=== PATIENT | male | born 1980 | race Caucasian/White ===

== ENCOUNTER → 2019-09-16 | Outpatient (CLI) | payer BC ==
--- NOTE | 2019-09-16 09:04 | Diagnostic Imaging Report ---
EXAM: CERVICAL SPINE 3 VIEW OR LESS INDICATION: Worsening chronic neck pain. COMPARISON: None. FINDINGS: Normal alignment. Vertebral body heights preserved. Minimal diffuse degenerative endplate changes. No fractures. Normal prevertebral soft tissues. IMPRESSION: Minimal spondylotic changes in the cervical spine. No acute findings. Dictated by: Dictated on workstation # [id number]
[2019-09-16 15:07] LABS: CHOLESTEROL 161 MG/DL (< 200); HDL CHOLESTEROL 47 MG/DL (40-60); TRIGLYCERIDES 63 MG/DL (<150); VLDL CHOLESTEROL 13 MG/DL (5-40)
== END ==
LOC: LAB FS 08:18
PROVIDERS: ATTEND Family Medicine
DX: E78.5 Hyperlipidemia, unspecified (principal); M54.2 Cervicalgia
CPT/HCPCS: 36415; 72040; 80061

== ENCOUNTER → 2020-06-14 | Outpatient (CLI) | payer BC ==
--- NOTE | 2020-06-14 11:39 | Diagnostic Imaging Report ---
Indication: Atypical chest pain, left-sided PA and lateral chest Heart size and pulmonary vascularity are normal. Lungs are clear. There are no effusions or pneumothoraces. IMPRESSION: Negative chest Dictated by: Dictated on workstation # [id number]
== END ==
LOC: RAD FS 10:11
PROVIDERS: ATTEND Family Medicine
DX: R07.89 Other chest pain (principal)
CPT/HCPCS: 71046

== ENCOUNTER → 2020-06-27 | Outpatient (CLI) | payer BC ==
[~2020-06-27] MED LIST: CATHETER FLUSH 10 ML SYR IV PRN; HOLD METFORMIN - RECEIVED CONTRAST 20 ML VIAL IV SCH; IOHEXOL 350 MG/ML 100 ML (OMNIPAQUE 350) VIAL IV ONE; NS 100 ML (IVPB) BAG IV ONE
--- NOTE | 2020-06-27 09:31 | Diagnostic Imaging Report ---
PROCEDURE: CT chest with contrast only. TECHNIQUE: Multiple contiguous axial images were obtained through the chest after administration of intravenous contrast. Auto Exposure Controls were utilized during the CT exam to meet ALARA standards for radiation dose reduction. INDICATION: Cough and shortness of breath for 2 months. COMPARISON: Chest radiographs performed on 06/14/2020. FINDINGS: Absence of intravenous contrast decreases sensitivity for detection of lymphadenopathy and vascular pathology. TRACHEA AND MAIN BRONCHI: Patent without evidence of tracheal or endobronchial lesion. LUNGS AND PLEURA: Clear lungs. No pleural effusion or pneumothorax. MEDIASTINUM AND PRIMITIVO: Visualized thyroid gland is normal. No mediastinal or hilar lymphadenopathy. Esophagus is nondistended. HEART AND VESSELS: Heart is normal in size. No pericardial effusion. Thoracic aorta is nonaneurysmal. DIAPHRAGM AND UPPER ABDOMEN: Unremarkable. CHEST WALL: No axillary lymphadenopathy. BONES: No acute abnormality. IMPRESSION: Normal exam. No acute cardiopulmonary process. No findings to account for the patient's symptoms. Dictated by: Dictated on workstation # [id number]
== END ==
LOC: RAD FS 08:03
PROVIDERS: ATTEND Family Medicine
DX: R05 Cough (principal); R06.02 Shortness of breath
CPT/HCPCS: 71260

== ENCOUNTER → 2021-04-16 | Outpatient (CLI) | payer BC ==
--- NOTE | 2021-04-16 10:21 | Diagnostic Imaging Report ---
PROCEDURE: CT sinuses without contrast TECHNIQUE: Multiple contiguous axial images were obtained through the sinuses without the use of intravenous contrast. Coronal and sagittal reformations were then performed. Auto Exposure Controls were utilized during the CT exam to meet ALARA standards for radiation dose reduction. INDICATION: Chronic recurrent sinusitis without relief after treatment. FINDINGS: There is rightward deviation of the nasal septum with mild leftward septal spurring. Ostiomeatal complexes do appear to be patent bilaterally and there is no evidence of significant mural thickening or air-fluid level within the paranasal sinuses. Mastoid air cells are also clear. There is pneumatization of the petrous portions of temporal bones bilaterally. There is no evidence of middle ear cavity abnormality. Temporomandibular joints are unremarkable. IMPRESSION: No CT evidence of sinusitis or other acute abnormality. Dictated by: Dictated on workstation # [id number]
== END ==
LOC: RAD FS 09:31
PROVIDERS: ATTEND Family Medicine
DX: J32.9 Chronic sinusitis, unspecified (principal)
CPT/HCPCS: 70486

== ENCOUNTER → 2021-04-18 | Outpatient (CLI) | payer BC | LOC: LABNPT 14:57 | PROVIDERS: ATTEND Family Medicine | DX: Z20.822 Contact with and (suspected) exposure to COVID-19 (principal) | CPT/HCPCS: 87636 ==

== ENCOUNTER 2021-05-17 05:30 | Outpatient (RCR) | payer BC ==
[~2021-05-17] VITALS: Ht 177.8 cm; Wt 69.1 kg
== END 2021-05-20 11:01 | disposition home or self-care (01) ==
LOC: PREOP 05:30
PROVIDERS: ATTEND Surgery
DX: Z01.818 Encounter for other preprocedural examination (principal)

== ENCOUNTER → 2021-05-17 | Outpatient (CLI) | payer BC ==
[~2021-05-17] MED LIST changes: +BUPR-168 PO; -CATHETER FLUSH 10 ML SYR IV PRN; -HOLD METFORMIN - RECEIVED CONTRAST 20 ML VIAL IV SCH; -IOHEXOL 350 MG/ML 100 ML (OMNIPAQUE 350) VIAL IV ONE; -NS 100 ML (IVPB) BAG IV ONE; +PANT40TA2 PO
== END ==
LOC: LAB FS 10:01
PROVIDERS: ATTEND Surgery
DX: Z01.812 Encounter for preprocedural laboratory examination (principal); K21.9 Gastro-esophageal reflux disease without esophagitis; Z20.822 Contact with and (suspected) exposure to COVID-19
CPT/HCPCS: 87635

== ENCOUNTER 2021-05-21 12:27 | Day surgery (SDC) | payer BC ==
[~2021-05-21] VITALS: Ht 177.8 cm; Wt 69.1 kg
[2021-05-21] MEDS ORDERED: LACTATED RINGERS 1,000 ML IV STA (12:30)
[2021-05-21] MEDS ORDERED: HURRICAINE EXT TUBE (BENZOCAINE) XX PRN (12:30)
[2021-05-21] MEDS ORDERED: LACTATED RINGERS 1,000 ML IV ONE (12:34)
[2021-05-21 12:43] VITALS: BP 125/81
--- NOTE | 2021-05-21 13:31 | Progress Note-Pre Operative ---
Pre-Operative Progress Note H&P Reviewed The H&P was reviewed, patient examined and no changes noted. Date Seen by Provider: May 21, 2021 Time Seen by Provider: 13:30 Date H&P Reviewed: May 21, 2021 Time H&P Reviewed: 13:30 Pre-Operative Diagnosis: GERD SKYLAR HAMILTON DO May 21, 2021 13:30
[2021-05-21] MEDS ORDERED: PROPOFOL INJECTION 50 ML IV ONE (13:38)
[2021-05-21] MEDS ORDERED: MIDAZOLAM 2 MG/2 ML (VERSED) VIAL ONE (13:38)
[2021-05-21 13:50] VITALS: BP 99/59
[2021-05-21 13:55] VITALS: BP 100/62
[2021-05-21 14:00] VITALS: BP 98/64
--- NOTE | 2021-05-21 14:00 | Anesthesia-General Post-Op ---
MAC Patient Condition Mental Status/LOC: Same as Preop Cardiovascular: Satisfactory Nausea/Vomiting: Absent Respiratory: Satisfactory Pain: Controlled Complications: Absent Post Op Complications Complications None Follow Up Care/Instructions Patient Instructions None needed. Anesthesiology Discharge Order Discharge Order Patient is doing well, no complaints, stable vital signs, no apparent adverse anesthesia problems. No complications reported per nursing. JERSON GODFREY CRNA May 21, 2021 14:00
--- NOTE | 2021-05-21 14:13 | Discharge Inst-Simple/Standard ---
Discharge Inst-Standard Patient Instructions/Follow Up Plan of Care/Instructions/FU: 2 weeks Rachel Activity as Tolerated: Yes Discharge Diet: Regular Diet SKYLAR HAMILTON DO May 21, 2021 14:12
[2021-05-21 14:25] VITALS: BP 110/80
[2021-05-21 14:35] VITALS: BP 110/80
--- NOTE | 2021-05-21 20:00 | OPERATIVE REPORT ---
DATE OF SERVICE: 05/21/2021 PREOPERATIVE DIAGNOSES: Gastroesophageal reflux disease. POSTOPERATIVE DIAGNOSIS: Normal esophagogastroduodenoscopy. PROCEDURE: EGD with biopsy. SURGEON: Skylar Ramos DO ANESTHESIA: Per BODY SHOP ESTIMATOR. ESTIMATED BLOOD LOSS: None. COMPLICATIONS: None. INDICATIONS: The patient is a 40-year-old male with GERD symptoms. He understands risks and benefits of procedure and wishes to proceed. Consent was signed in the chart. DESCRIPTION OF PROCEDURE: The patient was taken to endoscopy suite, placed in the left lateral recumbent position. Timeout was performed. Scope was inserted in mouth, down the esophagus, stomach and into the duodenum without difficulty. No polyps, masses or ulcerations within the duodenum. Scope was slowly retracted back to stomach where it was further insufflated. Biopsy of the antrum was obtained. No polyps, masses or ulcerations. Scope was retroflexed noting no other pathology. Scope was returned to its normal position, slowly withdrawn until completely in the distal esophagus. Biopsy of the GE junction was obtained. No polyps, masses or ulcerations. Scope was slowly retracted back until completely removed. The patient tolerated the procedure well without any complications, taken to recovery room in stable condition. RECOMMENDATIONS: The patient will follow up in 2 weeks to discuss pathology results. We would consider getting a gallbladder ultrasound and HIDA scan if indicated. Continue on current medications. CC: Dr. Aleida Collins - requested, unable to deliver. Job ID: [id number] DocumentID: [id number] Dictated Date: 05/21/2021 14:15:14 Collator Date: 05/21/2021 20:00:14 Dictated By: SKYLAR RAMOS DO
== END 2021-05-21 14:35 | disposition home or self-care (01) ==
LOC: ENDO 12:27
PROVIDERS: ATTEND Surgery
DX: K21.9 Gastro-esophageal reflux disease without esophagitis (principal); K29.50 Unspecified chronic gastritis without bleeding; K31.89 Other diseases of stomach and duodenum; B96.81 Helicobacter pylori [H. pylori] as the cause of diseases classified elsewhere; Z79.899 Other long term (current) drug therapy; Z87.891 Personal history of nicotine dependence
CPT/HCPCS: 88305; 88342

== ENCOUNTER → 2021-06-07 | Outpatient (CLI) | payer BC ==
--- NOTE | 2021-06-07 11:00 | Diagnostic Imaging Report ---
INDICATION: History of navicular fracture. COMPARISON: None. FINDINGS: 3 views of the left foot demonstrate no acute fracture or dislocation. There are no focal osseous lesions. There is no soft tissue swelling. Joint spaces are well maintained. No radiopaque foreign bodies are seen. IMPRESSION: No acute fractures or dislocations of the left foot. Dictated by: Dictated on workstation # [id number]
== END ==
LOC: RAD FS 10:39
PROVIDERS: ATTEND Nurse Practitioner
DX: Z87.81 Personal history of (healed) traumatic fracture (principal)
CPT/HCPCS: 73630

== ENCOUNTER → 2021-06-21 | Outpatient (CLI) | payer BC ==
--- NOTE | 2021-06-21 10:23 | Diagnostic Imaging Report ---
INDICATION: Sprain of the tarsometatarsal joint. TIME OF EXAM: 9:38 AM Correlation is made with prior radiograph from 06/07/2021. 3 views of the left foot were obtained. Tarsal metatarsal alignment appears normal. Metatarsals are intact. Phalanges are intact. No fractures are seen. The midfoot and hindfoot are unremarkable apart from a plantar calcaneal spur. IMPRESSION: No acute abnormality is detected. Dictated by: Dictated on workstation # [id number]
== END ==
LOC: RAD FS 09:29
PROVIDERS: ATTEND Nurse Practitioner
DX: S93.622D Sprain of tarsometatarsal ligament of left foot, subsequent encounter (principal); X58.XXXD Exposure to other specified factors, subsequent encounter
CPT/HCPCS: 73630

== ENCOUNTER → 2021-06-28 | Outpatient (CLI) | payer BC | LOC: LAB FS 06-27 09:52 | PROVIDERS: ATTEND Surgery | DX: B96.81 Helicobacter pylori [H. pylori] as the cause of diseases classified elsewhere (principal) | CPT/HCPCS: 36415; 87015; 87045; 87046; 87338; 87899 ==

== ENCOUNTER → 2021-08-07 | Outpatient (CLI) | payer BC ==
--- NOTE | 2021-08-07 08:58 | Diagnostic Imaging Report ---
INDICATION: Chronic neck pain. TIME OF EXAM: 8:33 AM. TECHNIQUE: Multiple views of the cervical spine were obtained. FINDINGS: The curvature and alignment are normal. The vertebral body heights and disc spaces are well-maintained. The prevertebral tissues are normal. No fractures are identified. The odontoid is intact. Flexion and extension views were also performed. There may be very slight anterolisthesis of C2 on C3 and C3 on C4 during flexion which corrects during extension. IMPRESSION: Unremarkable cervical spine radiographs apart from an perhaps minimal motion at C2-C3 and C3-C4. The study is otherwise unremarkable. Dictated by: Dictated on workstation # [id number]
== END ==
LOC: RAD FS 08:18
PROVIDERS: ATTEND Nurse Practitioner
DX: M54.2 Cervicalgia (principal)
CPT/HCPCS: 72050

== ENCOUNTER → 2021-11-07 | Outpatient (CLI) | payer BC ==
--- NOTE | 2021-11-07 12:45 | Diagnostic Imaging Report ---
Indication: Right hip pain. Time of Exam: 11:15 AM 2 views of the right hip demonstrate normal femoral acetabular alignment. Joint space is well maintained. Femoral head and neck are intact. Rami appear intact. No fractures are seen. Impression: No acute bony abnormality is detected. Dictated by: Dictated on workstation # [id number]
--- NOTE | 2021-11-07 12:45 | Diagnostic Imaging Report ---
Indication: Right hip pain. Time of Exam: 11:14 AM 3 views of the lumbar spine were obtained. Curvature and alignment is normal. Vertebral body heights and disc spaces are well maintained. No fracture or subluxation is seen. Impression: No acute bony abnormality is detected. Dictated by: Dictated on workstation # [id number]
== END ==
LOC: RAD FS 11:00
PROVIDERS: ATTEND Nurse Practitioner
DX: M25.551 Pain in right hip (principal)
CPT/HCPCS: 72100; 73502